=== PATIENT | female | born 1990 | race Asian ===

== ENCOUNTER 2019-11-07 09:59 | Emergency (ER) | payer MEDICAID ==
[~2019-11-07] VITALS: Ht 167.6 cm; Wt 86.2 kg
--- NOTE | 2019-11-07 10:10 | NUR ---
Patient to ER bed 06 to gown for evaluation. Side rails up.
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
--- NOTE | 2019-11-07 10:12 | NUR ---
Patient ambulated to the bathroom with a steady gait. Urine specimen collected. Urine preg done. Specimen dropped off at the lab.
--- NOTE | 2019-11-07 10:30 | NUR ---
X-ray done at bedside as ordered by Dr. Neito. Patient tolerated the procedure well.
[2019-11-07 10:39] VITALS: BP_SYST 120
--- NOTE | 2019-11-07 10:43 | NUR ---
ECG done at bedside as ordered by Dr. Nieto. Patient tolerated the procedure well. ER Physician given copy of EKG for review.
--- NOTE | 2019-11-07 10:44 | NUR ---
BERT Ricketts at bedside.
[2019-11-07 10:47] LABS: BASOPHILS % (AUTO) 0.4 % (0.0-2.0); EOSINOPHILS # (AUTO) 0.4 K/uL (0.0-0.4); EOSINOPHILS % (AUTO) 4.4 % (0.0-4.0); HEMOGLOBIN 13.9 g/dL (12.0-16.0); LYMPHOCYTES % (AUTO) 10.2 % (20.5-51.5); MEAN CORPUSCULAR HEMOGLOBIN 29 pg (27-31); MEAN CORPUSCULAR HGB CONC 33 % (32-36); MEAN CORPUSCULAR VOLUME 87 fL (79.0-98.0); MONOCYTES # (AUTO) 0.5 K/uL (0.0-1.0); MONOCYTES % (AUTO) 4.6 % (1.7-9.3); NEUTROPHILS % (AUTO) 80.4 % (40.0-70.0); PLATELET COUNT (AUTO) 282 K/uL (130-430); RED BLOOD CELL COUNT(AUTO) 4.85 MIL/uL (4.2-6.2); RED CELL DISTRIBUTION WIDTH 13.1 % (9.0-15.0); WHITE BLOOD COUNT (AUTO) 9.9 K/uL (4.8-10.8)
[2019-11-07 10:47] LABS: BARBITURATE, URINE NEGATIVE (NEG <=200); BENZODIAZEPINE, URINE NEGATIVE (NEG <=150); CANNABINOID, URINE NEGATIVE (NEG <=50); COCAINE, URINE NEGATIVE (NEG <=150); METHAMPHETAMINES SCREEN,URINE NEGATIVE (NEG <=500); OPIATE, URINE NEGATIVE (NEG <=100); PHENCYCLIDINE SCREEN,URINE NEGATIVE (NEG <=25); UR TRICYCLIC ANTIDEPRESSANTS NEGATIVE (NEG <=300); URINE AMPHETAMINE NEGATIVE (NEG <=500); URINE METHADONE NEGATIVE (NEG <=200); URINE OXYCODONE SCREEN NEGATIVE (NEG <=100); URINE PROPOXYPHENE SCREEN NEGATIVE (NEG <=300)
--- NOTE | 2019-11-07 11:06 | NUR ---
Patient stated she's not taking any home meds.
[2019-11-07 11:07] LABS: ANION GAP 12 (5-15); CALCIUM 8.8 mg/dL (8.4-11.0); CHLORIDE 102 mmol/L (98-107); CREATININE 0.85 mg/dL (0.55-1.30); GLUCOSE 104 mg/dL (70-99); POTASSIUM 3.7 mmol/L (3.5-5.1); SODIUM SERUM 138 mmol/L (136-145); UREA NITROGEN, BLOOD 14 mg/dL (8-21)
[2019-11-07 11:08] LABS: GFR AFRICAN AMERICAN 103 mL/min (>90)
[2019-11-07 11:13] LABS: ACETAMINOPHEN < 1 ug/mL (1-30); ALANINE AMINOTRANSFERASE 27 U/L (12-78); ALBUMIN 3.6 g/dL (3.4-4.8); ALCOHOL, BLOOD < 3 mg/dL (<10); ASPARTATE AMINOTRANSFERASE 16 U/L (10-37); TOTAL BILIRUBIN 0.6 mg/dL (0.0-1.0)
[2019-11-07] MEDS ORDERED: ALPRAZolam 0.25 MG TABLET PO ONE (11:15)
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
--- NOTE | 2019-11-07 11:36 | NUR ---
Administered Xanax 0.25mg 2 tablets as ordered by [address] Nieto. Patient tolerated the medication well. See eMAR for details.
--- NOTE | 2019-11-07 12:17 | NUR ---
ER Dr. Nieto at bedside re-examining patient and giving discharge instructions.
[2019-11-07 13:03] VITALS: BP_SYST 120
--- NOTE | 2019-11-07 13:08 | NUR ---
Patient given written and verbal discharge instructions and verbalizes understanding. ER MD discussed with patient the results and treatment provided. Patient in stable condition. ID arm band removed. Rx of Xanax given. Patient educated on pain management and to follow up with PMD. Pain Scale 0/10. Opportunity for questions provided and answered. Medication side effect fact sheet provided.
== END 2019-11-07 13:03 | disposition home or self-care (01) ==
LOC: SED 09:59 → EDSEX 09:59 → SED 13:03
DX: F29 Unspecified psychosis not due to a substance or known physiological condition (principal)
CPT/HCPCS: 36415; 71045; 80053; 80307; 84703; 85025; 93005; 99285; G0480; G0481; G0482